=== PATIENT | female | born 1985 | race Caucasian/White ===

== ENCOUNTER 2024-12-07 07:37 | Inpatient (IN) | payer OTHER, SELFPAY ==
[2024-12-07 07:47] VITALS: BP 114/73; BMI 27.1
[2024-12-07 08:30] LABS: Hematocrit 40.5 % (37.0-47.0); Hemoglobin 13.8 g/dL (12.0-16.0); Mean Corp Hgb Conc. 34.1 g/dL (33.0-37.0); Mean Corpuscular Volume 93.5 fL (81.0-99.0); Nucleated Red Blood Cells % 0 %; Platelet Count 167 10^3/uL (130-400); Red Cell Dist. Width 13.4 % (11.5-14.5)
[2024-12-07] MEDS: COLACE 100 MG PO (19:42)
[2024-12-08 04:42] LABS: Hematocrit 39.8 % (37.0-47.0); Hemoglobin 13.5 g/dL (12.0-16.0)
[2024-12-08] MEDS: PRENATAL PLUS 1 TABLET PO (08:23)
[2024-12-08] MEDS: COLACE 100 MG PO ×2 (08:23→19:28)
[2024-12-09] MEDS: COLACE 100 MG PO (08:23)
[2024-12-09] MEDS: PRENATAL PLUS 1 TABLET PO (08:23)
[2024-12-11 13:35] LABS: Syphilis/T. pallidum Ab Reflex Negative (Negative)
== END 2024-12-09 11:39 | disposition home or self-care (01) | DRG 807 ==
LOC: LDRP 07:37
PROVIDERS: Student in an Organized Health Care Education/Training Program; ADMITTING PHYSICIAN Obstetrics & Gynecology
PROC: 10E0XZZ Delivery of Products of Conception, External Approach (ICD-10-PCS; 2024-12-07)
DX: O80 Encounter for full-term uncomplicated delivery (principal); Z37.0 Single live birth; Z3A.39 39 weeks gestation of pregnancy
CPT/HCPCS: 36415; 85014; 85018; 85025; 86780; 86850; 86900; 86901